=== PATIENT | male | born 1945 | race Hispanic/Latino ===

== ENCOUNTER 2017-07-07 05:20 | Emergency (ER) | payer MEDICARE ==
[2017-07-07 05:24] VITALS: BMI 26.6
[2017-07-07 05:32] VITALS: TEMP 97.5
[2017-07-07] MEDS ORDERED: Oxycodone/Acetaminophen 5/325 mg Tab PO STA (05:45)
--- NOTE | 2017-07-07 05:50 | ED PDOC ---
Arrival/HPI - General Chief Complaint: Upper Extremity Problem/Injury Time Seen by Provider: 07/07/17 05:21 - History of Present Illness Narrative History of Present Illness (Text): 07/07/17 05:45 Patient is a 72 year old male with a past medical history of DM, HTN, and right shoulder replacement (20 years ago for workplace injury), who presents to the ED for 1 month of worsening right shoulder pain. Patient says he occasionally has had aches and pains in the past that are controlled with tylenol but the pain has escalated to the pain where he now describes it as feeling like his "shoulder is on fire". He admits to associated decrease in ROM saying his shoulder feels "stiff" and is difficult to move due to the pain. Patient says he came in shortly after it started a month ago and was given an injection in his shoulder which helped but it eventually wore off and the pain has become unbearable. Patient saw his orthopedist, Dr. Syed, who had him get a tagged WBC scan to rule out septic joint. Patient had this done yesterday and it was negative. Patient had a recent shoulder X ray showing possible AC joint separation but was an otherwise negative study. Complete ROS reviewed and negative except for that mentioned above. (Meryl Acosta) Past Medical History - Cardiac Hx Cardiac Disorders: Yes Hx Hypertension: Yes - Pulmonary Hx Respiratory Disorders: No - Neurological Hx Neurological Disorder: No - HEENT Hx HEENT Disorder: No - Renal Hx Renal Disorder: No - Endocrine/Metabolic Hx Endocrine Disorders: No Hx Diabetes Mellitus Type 2: Yes - Hematological/Oncological Hx Blood Disorders: No - Integumentary Hx Dermatological Disorder: No - Gastrointestinal Hx Gastrointestinal Disorders: No - Genitourinary/Gynecological Hx Genitourinary Disorders: No - Psychiatric Hx Psychophysiologic Disorder: No Hx Substance Use: No - Surgical History Hx Orthopedic Surgery: Yes (R shoulder replacement) - Patient History Narrative Patient History: as per HPI (Meryl Acosta) Family/Social History Family/Social History: Unknown Family HX Smoking Status: Unknown If Ever Smoked Hx Alcohol Use: No Hx Substance Use: No Allergies/Home Meds Allergies/Adverse Reactions: Allergies No Known Allergies Allergy (Verified 07/07/17 05:23) Review of Systems - Physician Review All systems were reviewed & negative as marked: Yes - Review of Systems Constitutional: Normal. absent: Fevers, Night Sweats Eyes: Normal ENT: Normal Respiratory: Normal. absent: SOB, Cough, Sputum, Wheezing Cardiovascular: Normal. absent: Chest Pain, Palpitations Gastrointestinal: Normal. absent: Abdominal Pain, Constipation, Diarrhea, Nausea, Vomiting Musculoskeletal: Arthralgias. absent: Back Pain, Neck Pain, Joint Swelling Neurological: Headache Physical Exam Temperature: Afebrile Blood Pressure: Hypertensive Pulse: Regular Respiratory Rate: Normal Appearance: Positive for: Well-Appearing, Non-Toxic, Comfortable Pain Distress: Moderate Mental Status: Positive for: Alert and Oriented X 3 - Systems Exam Head: Present: Atraumatic, Normocephalic Pupils: Present: PERRL Extroacular Muscles: Present: EOMI Conjunctiva: Present: Normal Mouth: Present: Moist Mucous Membranes Neck: Present: Normal Range of Motion. No: MIDLINE TENDERNESS, Paraspinal Tenderness Respiratory/Chest: Present: Clear to Auscultation, Good Air Exchange. No: Respiratory Distress, Accessory Muscle Use Cardiovascular: Present: Regular Rate and Rhythm, Normal S1, S2. No: Murmurs Abdomen: Present: Normal Bowel Sounds. No: Tenderness, Distention, Peritoneal Signs Back: Present: Normal Inspection Upper Extremity: Present: NORMAL PULSES, Tenderness (near the bicipital groove of the right shoulder), Neurovascularly Intact, Capillary Refill < 2s. No: Cyanosis, Edema, Normal ROM (decreased active and passive range of motion due to pain), Swelling, Erythema Lower Extremity: Present: Normal Inspection. No: Edema, CALF TENDERNESS Neurological: Present: GCS=15, Speech Normal Skin: Present: Warm, Dry, Normal Color. No: Rashes Psychiatric: Present: Alert, Oriented x 3, Normal Insight, Normal Concentration Vital Signs Temp Pulse Resp BP Pulse Ox 07/07/17 05:27 97.5 F L 85 18 175/90 H 98 Medical Decision Making ED Course and Treatment: 07/07/17 05:54 Plan: -toradol -percocet I explained to the patient that we will treat his pain in the ED, but given he has already had workup recently and all emergent causes of pain ruled out, he should follow up with his orthopedist and may possibly need eventual referral to pain management. Patient understood and agreed with the plan. (Meryl Acosta) Seen and examined with resident. 72 year old M p/w R shoulder pain. Tender to shoulder on exam. (Matt Hurtado) - Medication Orders Current Medication Orders: Discontinued Medications Ketorolac Tromethamine (Toradol) 30 mg IM STAT STA Stop: 07/07/17 06:02 Oxycodone/Acetaminophen (Percocet 5/325 Mg Tab) 1 tab PO STAT STA Stop: 07/07/17 05:46 Last Admin: 07/07/17 05:52 Dose: 1 tab MAR Pain Assessment Document 07/07/17 05:52 CNR (Rec: 07/07/17 05:52 CNR [id number]) Pain Reassessment Is this a pain reassessment? 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 MD/DO has examined the patient and agrees with the treatment plan. Disposition/Present on Arrival - Present on Arrival Any Indicators Present on Arrival: No History of DVT/PE: No History of Uncontrolled Diabetes: No Urinary Catheter: No History of Decub. Ulcer: No History Surgical Site Infection Following: None - Disposition Have Diagnosis and Disposition been Completed?: Yes Disposition Time: 05:56 - Disposition Diagnosis: Shoulder pain, right Disposition: HOME/ ROUTINE Condition: STABLE Discharge Instructions (ExitCare): Shoulder Pain (DC) Additional Instructions: Please follow up with your orthopedic surgeon for further evaluation of your shoulder pain. You may take percocet 1 tab every 6 hours ONLY as needed for pain. If you experience any new or worsening symptoms, please return to the ED. Prescriptions: oxyCODONE/Acetaminophen [Percocet 5/325 mg Tab] 1 tab PO Q6 #12 tab Referrals: Salomon Syed MD [Staff Provider] - Follow up with primary Forms: [employer] (Burkinan)
[2017-07-07 08:44] VITALS: BP 146/82; PULSE 78; RESP 18; O2SAT 98
== END 2017-07-07 08:45 | disposition home or self-care (01) ==
LOC: ED 05:20
DX: M25.511 Pain in right shoulder (principal)
CPT/HCPCS: 96372; 99284; J1885

== ENCOUNTER 2018-04-04 20:32 | Emergency (ER) | payer MEDICARE ==
[2018-04-04 21:23] VITALS: BMI 27.3
--- NOTE | 2018-04-04 22:17 | ED PDOC ---
Arrival/HPI - General Chief Complaint: Upper Extremity Problem/Injury Time Seen by Provider: 04/04/18 21:34 Historian: Patient - History of Present Illness Narrative History of Present Illness (Text): 04/04/18 22:08 73 y/o male with PSH of right total shoulder arthroplasty in December 2017 presents to the ED with intermittent right shoulder/neck pain since surgery that's is getting worse by time. Patient was seen at [facility] on 03[place] with the same symptoms, CT shoulder was done that did not show any acute changes and patient was d/c home. Patient was seen by his PMD Dr Villanueva and was given percocet, lidoderm patch, 1 week of medrol-dose but all failed to relieve his symptoms. Patient last dose of percocet was 2 hours ago but still feels the pain. He denied associated symptoms of fever, chills, muscle weakness, tinglin g/numbness, change in limb temperature, chest pain, palpitations. Patient is scheduled to see his orthopedic surgeon in [facility] in 15 days but he can not tolerate the pain. 04/04/18 22:17 04/04/18 22:34 Time/Duration: > month Symptom Onset: Gradual Symptom Course: Worsening Quality: Aching Severity Level: 9 Context: Exertion Past Medical History - Provider Review Nursing Documentation Reviewed: Yes - Travel History Have you recently traveled outside [place] w/in the past 3 mons?: No - Infectious Disease Hx of Infectious Diseases: None - Cardiac Hx Hypertension: Yes - Pulmonary Hx Respiratory Disorders: No - Neurological Hx Neurological Disorder: No - HEENT Hx HEENT Disorder: No - Renal Hx Renal Disorder: No - Endocrine/Metabolic Hx Endocrine Disorders: No Hx Diabetes Mellitus Type 2: Yes - Hematological/Oncological Hx Blood Disorders: No - Integumentary Hx Dermatological Disorder: No - Gastrointestinal Hx Gastrointestinal Disorders: No - Genitourinary/Gynecological Hx Genitourinary Disorders: No - Psychiatric Hx Psychophysiologic Disorder: No Hx Substance Use: No - Surgical History Hx Orthopedic Surgery: Yes (R shoulder replacement) - Anesthesia Hx Anesthesia: Yes Hx Anesthesia Reactions: No Family/Social History - Physician Review Nursing Documentation Reviewed: Yes Family/Social History: No Known Family HX Smoking Status: Never Smoked Hx Alcohol Use: Yes Hx Substance Use: No Allergies/Home Meds Allergies/Adverse Reactions: Allergies No Known Allergies Allergy (Verified 03/30/18 14:32) Review of Systems - Review of Systems Constitutional: Normal Eyes: Normal ENT: Normal Respiratory: Normal. absent: SOB, Cough Cardiovascular: Normal. absent: Chest Pain, Palpitations Gastrointestinal: Normal. absent: Abdominal Pain, Nausea, Vomiting Genitourinary Male: Normal Musculoskeletal: Neck Pain, Other (right shoulder pain) Skin: Normal Neurological: Normal, Headache. absent: Dizziness, Focal Weakness, Speech Changes, Facial Droop Endocrine: Normal Hemo/Lymphatic: Normal Psychiatric: Normal Physical Exam Temperature: Afebrile Blood Pressure: Normal Pulse: Regular Respiratory Rate: Normal Appearance: Positive for: Well-Appearing, Non-Toxic Pain Distress: Moderate Mental Status: Positive for: Alert and Oriented X 3 - Systems Exam Head: Present: Atraumatic, Normocephalic Pupils: Present: PERRL Extroacular Muscles: Present: EOMI Conjunctiva: Present: Normal Mouth: Present: Moist Mucous Membranes Nose (External): Present: Atraumatic Nose (Internal): Present: Normal Inspection Neck: Present: Other (limited ROM due to pain. tender to touch right cervical muscles. no swelling, injury noted) Respiratory/Chest: Present: Clear to Auscultation, Good Air Exchange Cardiovascular: Present: Regular Rate and Rhythm, Normal S1, S2 Abdomen: Present: Normal Bowel Sounds. No: Tenderness, Distention Upper Extremity: Present: Edema (mild edema), NORMAL PULSES, Tenderness (right shoulder), Neurovascularly Intact, Other (limited ROM in right shoulder. normal ROM in right elbow, wrist, hand). No: Erythema, Temperature Abnormalties Lower Extremity: Present: Normal Inspection. No: Edema Neurological: Present: GCS=15 Skin: Present: Warm, Dry Psychiatric: Present: Alert, Oriented x 3 Medical Decision Making ED Course and Treatment: 04/05/18 02:00 patient re-examined after giving flexirel and toradol. Patient reported improving of his neck pain. He is being discharged home. Patient to advised to follow up with his orthopedic surgeon Dr Stone as outpatient. Continue his pain meds as prescribed by his PMD. 04/05/18 02:03 04/05/18 02:04 Re-evaluation Time: 01:59 Reassessment Condition: Re-examined, Improving,but remains with symptoms - Lab Interpretations I have reviewed the lab results: Yes Interpretation: Abnormal lab values - EKG Interpretation Interpreted by ED Physician: Yes Type: 12 lead EKG Disposition/Present on Arrival - Present on Arrival Any Indicators Present on Arrival: Yes History of DVT/PE: No History of Uncontrolled Diabetes: No Urinary Catheter: No History of Decub. Ulcer: No History Surgical Site Infection Following: None - Disposition Have Diagnosis and Disposition been Completed?: Yes Diagnosis: Right shoulder pain Disposition: HOME/ ROUTINE Disposition Time: 02:07 Patient Plan: Discharge Condition: STABLE Referrals: FAMILY PROVIDER,NO [Primary Care Provider] - Follow up with primary Forms: [employer] (Thai)
[2018-04-04 23:30] LABS: EOS # 0.2 (0.0-0.7); EOS % 1.5 % (1.5-5.0); HEMOGLOBIN 12.5 g/dL (14.0-18.0); LYMPH # 3.9 (1.2-3.4); LYMPH % 39.8 % (22.0-35.0); MEAN CELL VOLUME 86.9 fl (80.0-105.0); MEAN CORPUSCULAR HEMOGLOBIN 30.3 pg (25.0-35.0); MEAN CORPUSCULAR HGB CONC 34.8 g/dl (31.0-37.0); MEAN PLATELET VOLUME 9.4 fl (7.0-11.0); MONO # 0.7 (0.1-0.6); MONO % 7.5 % (1.0-6.0); RBC 4.13 10^6/uL (3.5-6.1); RED CELL DISTRIBUTION WIDTH 13.7 % (11.5-14.5); WHITE BLOOD COUNT 9.8 10^3/uL (4.5-11.0)
[2018-04-05 05:15] VITALS: BP 112/74; PULSE 68; RESP 18; TEMP 98.6; O2SAT 98
== END 2018-04-05 02:45 | disposition home or self-care (01) ==
LOC: ED 20:32
DX: M25.511 Pain in right shoulder (principal); E11.9 Type 2 diabetes mellitus without complications; I10 Essential (primary) hypertension
CPT/HCPCS: 80048; 85025; 85651; 96374; 99283; J1885

== ENCOUNTER 2018-04-13 11:10 | Outpatient (CLI) | payer MEDICARE | END 2018-04-13 11:11 | disposition home or self-care (01) | LOC: RAD 11:10 ==